=== PATIENT | female | born 1970 | race Caucasian/White ===

== ENCOUNTER 2019-02-12 11:36 | Emergency (ER) | payer BC ==
[2019-02-12 12:19] VITALS: BP 146/73
[2019-02-12 13:38] LABS: Influenza A Molecular NEGATIVE (Negative); Influenza B Molecular NEGATIVE (Negative)
--- NOTE | 2019-02-12 13:44 | UC ---
Respiratory Complaint HPI - HPI Summary HPI Summary: 48 yo female with 2 day hx of cough/severe sore throat/sinus pressure and pain chills myalgias no CPorSOB - History of Current Complaint Chief Complaint: UCGeneralIllness Stated Complaint: SORE THROAT Time Seen by Provider: 02/12/19 13:10 Hx Obtained From: Patient Hx Last Menstrual Period: ablation--last menses approx 1.5 wks ago Onset/Duration: Gradual Onset Timing: Constant Severity Initially: Mild Severity Currently: Moderate Pain Intensity: 7 Pain Scale Used: 0-10 Numeric Character: Cough: Productive Associated Signs And Symptoms: Positive: Chills, URI, Nasal Congestion - Allergies/Home Medications Allergies/Adverse Reactions: Allergies Allergy/AdvReac Type Severity Reaction Status Date / Time shellfish derived Allergy Swelling Verified 02/12/19 12:12 Of Face,Lips,& Throat Home Medications: Home Medications Cholecalciferol TAB* [Vitamin D TAB*] 1,000 unit PO DAILY 02/12/19 [History Confirmed 02/12/19] PMH/Surg Hx/FS Hx/Imm Hx Previously Healthy: Yes - Surgical History Surgical History: Yes Surgery Procedure, Year, and Place: Ablation. Uterine sx x 2 - Family History Known Family History: Positive: Cardiac Disease, Hypertension, Diabetes - Social History Alcohol Use: Daily Substance Use Type: None Smoking Status (MU): Current Every Day Smoker Type: Cigarettes Amount Used/How Often: 5-10 cigs/day Length of Time of Smoking/Using Tobacco: 29 yrs Have You Smoked in the Last Year: Yes Review of Systems All Other Systems Reviewed And Are Negative: Yes Constitutional: Positive: Chills, Fatigue Skin: Positive: Negative Eyes: Positive: Negative ENT: Positive: Sore Throat, Nasal Discharge, Sinus Congestion, Sinus Pain/ Tenderness Respiratory: Positive: Cough Cardiovascular: Positive: Negative Gastrointestinal: Positive: Negative Genitourinary: Positive: Negative Neurovascular: Positive: Negative Musculoskeletal: Positive: Myalgia Neurological: Positive: Headache Psychological: Positive: Negative Physical Exam Triage Information Reviewed: Yes Appearance: Well-Appearing, No Pain Distress, Well-Nourished Vital Signs: Initial Vital Signs Temp 97.7 F 02/12/19 12:13 Pulse 76 02/12/19 12:13 Resp 16 02/12/19 12:13 BP 146/73 04/05/19 12:13 Pulse Ox 99 02/12/19 12:13 Vital Signs Reviewed: Yes Eyes: Positive: Conjunctiva Clear ENT: Positive: Hearing grossly normal, Pharyngeal erythema, Nasal congestion, Nasal drainage, TMs normal, Sinus tenderness - slight, Uvula midline. Negative : Tonsillar swelling, Tonsillar exudate, Trismus, Muffled voice, Hoarse voice Neck: Positive: Supple, Nontender, No Lymphadenopathy Respiratory: Positive: Lungs clear, Normal breath sounds, No respiratory distress, Wheezing - with forced expiration only, Other: - bronchospastic cough Cardiovascular: Positive: RRR Abdominal Exam: Normal Bowel Sounds: Positive: Present Musculoskeletal: Positive: ROM Intact, No Edema Neurological: Positive: Alert Psychological Exam: Normal Skin Exam: Normal Respiratory Course/Dx - Differential Dx/Diagnosis Provider Diagnosis: Acute pharyngitis, Bronchitis Discharge - Sign-Out/Discharge Documenting (check all that apply): Patient Departure All imaging exams completed and their final reports reviewed: No Studies - Discharge Plan Condition: Stable Disposition: HOME Prescriptions: Amoxicillin PO (*) [Amoxicillin 875 MG (*)] 875 mg PO BID #14 tab Patient Education Materials: Sinusitis (ED), Acute Bronchitis (ED) Referrals: Jasmin Tariq, [employer] DIRECT[employer] [Primary Care Provider] - 4 Days (if not better) - Billing Disposition and Condition Condition: STABLE Disposition: Home
== END 2019-02-12 13:52 | disposition home or self-care (01) ==
LOC: UCCORT 11:36
DX: J02.9 Acute pharyngitis, unspecified (principal); J40 Bronchitis, not specified as acute or chronic; F17.210 Nicotine dependence, cigarettes, uncomplicated; Z91.013 Allergy to seafood
CPT/HCPCS: 87651; 99202; G0463